=== PATIENT | female | born 1970 | race Caucasian/White ===

== ENCOUNTER 2019-05-20 23:27 | Inpatient (IN) ==
--- NOTE | 2019-05-20 23:57 | PROVIDER DOCUMENTATION ---
This chart was entered by Ansley Reyez Scribe, acting as scribe for Michelle Olsen MD. [facility] Abuse/Overdose - General Chief Complaint: Overdose Stated Complaint: OVERDOSE Time Seen by Provider: 05/20/19 23:30 Source: patient, EMS ([facility]) Allergies/Adverse Reactions: Allergies Allergy/AdvReac Type Severity Reaction Status Date / Time adhesive tape AdvReac Intermediate RASH Verified 05/20/19 14:33 ketorolac [From Toradol] AdvReac HEADACHE Verified 05/20/19 14:33 Home Medications: Home Medication List Medication Instructions Recorded Confirmed Last Taken Type Dexlansoprazole [Dexilant] 1 cap PO DAILY 06/07/16 05/21/19 11/11/16 08:00 History Gabapentin [Neurontin] 800 mg PO TID 06/07/16 05/21/19 11/11/16 20:30 History Levothyroxine [Synthroid] 1 tab PO DAILY 06/07/16 02/12/19 11/11/16 08:00 History Pioglitazone HCl/Metformin HCl 1 tab PO BID 06/07/16 02/12/19 11/11/16 20:30 History [Actoplus Met 15 mg-850 mg Tab] Buspirone [Buspar] 15 mg PO BID 11/06/16 02/12/19 11/11/16 08:00 History Ibuprofen 800 mg PO DIRECTED PRN 11/06/16 02/12/19 11/11/16 20:30 History Losartan Potassium 50 mg PO DAILY 11/06/16 02/12/19 11/11/16 08:00 History Citalopram Hydrobromide [Celexa] 40 mg PO DAILY 02/12/19 05/21/19 Unknown History Divalproex [Depakote] 500 mg PO DIRECTED 02/12/19 05/21/19 Unknown History Insulin Aspart [Novolog] 100 unit SQ DIRECTED 02/12/19 02/12/19 Unknown History Tramadol HCl [Ultram] 50 mg PO 4XDAY PRN PRN #20 tab 05/20/19 Unknown Rx - History of Present Illness-Drug/Alcohol Nature of Presenting Problem: Pt is a 48 yowf brought by EMS to ED after her mother called 911 saying she took the rest of her weeks worth of prescriptions medications from her pill box. EMS was given a list of pt's medications by pt's mother who lives with pt. Pt has a walking boot on left foot and an charito bandage wrapped around her left fingers and hand. Pt is person oriented and non combative. Pt is disheveled in appearance. This episode of drinking or use began:: just prior to arrival Severity: reports: moderate Situational problems related to:: reports: N/A Psychiatric Complaints: reports: agitated, anxiety, confused, depressed Associated Symptoms: denies: arm pain, diarrhea, shortness of breath, syncope Any injuries associated with this episode of intoxication?: No Review of Systems - Adult - REVIEW OF SYSTEMS - ADULT Constitutional: denies: chills, fever Eyes: reports: no symptoms reported Ears, Nose, Mouth & Throat: reports: no symptoms reported Cardiovascular: denies: chest pain, edema Respiratory: denies: cough, shortness of breath Gastrointestinal: denies: abdominal pain, nausea, vomiting Genitourinary: reports: no symptoms reported Musculoskeletal: reports: no symptoms reported Integumentary: reports: no symptoms reported Neurological: reports: no symptoms reported Psychiatric: reports: no symptoms reported Endocrine: reports: no symptoms reported Hematologic/Lymphatic: reports: no symptoms reported Allergic/Immunologic: reports: no symptoms reported All Other Systems: Reviewed and Negative Past History - Adult - PAST MEDICAL HISTORY-ADULT Review of Records: reports: Old Records Reviewed, Nursing Assessment Review, Medications Reviewed, Social history reviewed & non-contributory. Major Childhood Illnesses: reports: denies history Cardiovascular: reports: hyperlipidemia Respiratory: reports: denies history Gastrointestinal: reports: denies history Genitourinary: reports: denies history Musculoskeletal: reports: chronic pain Neurological: reports: denies history Psychiatric: reports: bipolar Endocrine/Immune: reports: Diabetes, thyroid disorder (Hypo) Other Conditions: reports: denies history - PRIOR SURGERIES/PROCEDURES Surgical/Procedure History: reports: reviewed, not pertinent - IMMUNIZATION STATUS Childhood Immunizations: See Nurse Assessment Flu Vaccine: See Nurse Assessment - FAMILY HISTORY Family History: reviewed, not pertinent - SOCIAL HISTORY Smoking: non-smoker Substance Use: none/never Living Situation: family (mother) Physical Exam-General - PHYSICAL EXAM-ADULT Initial Vital Signs Reviewed: Yes - CONSTITUTIONAL General Appearance: alert, mild distress, obese, anxious, slow to respond - EYES Eyes: PERRL/EOMI, pink conjunctivae - HEAD, EARS, NOSE, MOUTH & THROAT HENMT: normocephalic/atraumatic, moist mucous membranes, normal ENT inspection - NECK Neck: non-tender, full range of motion, supple, normal inspection - RESPIRATORY Respiratory: chest non-tender, lungs clear, normal breath sounds, no pleuratic chest pain, no respiratory distress - CARDIOVASCULAR Cardiovascular: normal peripheral pulses - GASTROINTESTINAL (ABDOMEN) Abdominal Exam: normal bowel sounds, non tender, soft - MUSCULOSKELETAL Back Exam: normal inspection, no CVA tenderness, no vertebral tenderness Extremity: normal range of motion, non-tender, normal inspection, no pedal edema , other (walking boot on left foot) - SKIN Integumentary: normal turgor, warm/dry, pallor - PSYCHIATRIC Psych/Mental Status: anxious, disheveled, depressed affect, other (person oriented) Progress - PLAN OF CARE/RESULTS Progress/Plan/Lab Results: Vital Signs - 8 hr 05/20/19 23:44 05/21/19 00:11 05/21/19 00:21 Temperature 97.9 F Pulse Rate 96 H Respiratory Rate 20 Blood Pressure 114/66 108/73 O2 Sat by Pulse Oximetry 94 L 96 94 L 05/21/19 00:41 Temperature Pulse Rate 94 H Respiratory Rate 17 Blood Pressure 114/57 O2 Sat by Pulse Oximetry Laboratory Results - last 24 hr 05/20/19 05/20/19 05/20/19 23:48 23:48 23:48 WBC 6.04 RBC 3.93 L Hgb 11.1 L Hct 36.5 L MCV 92.9 MCH 28.2 MCHC 30.4 L RDW Std Deviation 14.4 Plt Count 116 L MPV 9.3 Immature Gran % (Auto) 0.5 Neut % (Auto) 46.9 Lymph % (Auto) 38.1 [place] % (Auto) 10.3 H Eos % (Auto) 4.0 Baso % (Auto) 0.2 Immature Gran # (Auto) 0.03 Neut # (Auto) 2.84 Lymph # (Auto) 2.30 [place] # (Auto) 0.62 H Eos # (Auto) 0.24 Baso # (Auto) 0.01 Sodium 139 Potassium 5.3 H Chloride 101 Carbon Dioxide 25 Anion Gap 13 BUN 33 H Creatinine 2.5 H Estimated GFR/1.73 m2 20 BUN/Creatinine Ratio 13 Glucose 182 H Calculated Osmolality 289 Calcium 9.0 Total Bilirubin 0.18 L AST 8 L ALT 5 L Alkaline Phosphatase 84 Total Protein 7.4 Albumin 3.9 Globulin 3.5 Albumin/Globulin Ratio 1.1 Urine Source Urine Color Urine Turbidity Urine pH Ur Specific [place] Urine Protein Ur Glucose (Stick) Ur Ketones (Stick) Urine Blood Urine Nitrite Urine Bilirubin Urobilinogen Dipstick Urine Leukocytes Urine WBC (Auto) Urine RBC (Auto) U Epithel Cells (Auto) Urine Bacteria (Auto) Salicylates < 3.00 L Urine Opiates Screen Ur Oxycodone Screen Ur Methadone, Qual Acetaminophen < 1.2 L Ur Barbiturates Screen Valproic Acid 131.20 H* Ur Phencyclidine Scrn Ur Amphetamines Screen U Benzodiazepines Scrn Urine Cocaine Screen U Cannabinoids Screen Plasma/Serum Ethyl Alc Acetone Level NEGATIVE 05/21/19 05/21/19 00:19 00:19 WBC RBC Hgb Hct MCV MCH MCHC RDW Std Deviation Plt Count MPV Immature Gran % (Auto) Neut % (Auto) Lymph % (Auto) [place] % (Auto) Eos % (Auto) Baso % (Auto) Immature Gran # (Auto) Neut # (Auto) Lymph # (Auto) [place] # (Auto) Eos # (Auto) Baso # (Auto) Sodium Potassium Chloride Carbon Dioxide Anion Gap BUN Creatinine Estimated GFR/1.73 m2 BUN/Creatinine Ratio Glucose Calculated Osmolality Calcium Total Bilirubin AST ALT Alkaline Phosphatase Total Protein Albumin Globulin Albumin/Globulin Ratio Urine Source CATH Urine Color YELLOW Urine Turbidity CLEAR Urine pH 5.0 Ur Specific [place] 1.011 Urine Protein NEGATIVE Ur Glucose (Stick) NEGATIVE Ur Ketones (Stick) NEGATIVE Urine Blood NEGATIVE Urine Nitrite NEGATIVE Urine Bilirubin NEGATIVE Urobilinogen Dipstick NORMAL Urine Leukocytes NEGATIVE Urine WBC (Auto) <10 Urine RBC (Auto) <10 U Epithel Cells (Auto) <10 Urine Bacteria (Auto) NEGATIVE Salicylates Urine Opiates Screen NONE DETECTED Ur Oxycodone Screen NONE DETECTED Ur Methadone, Qual NONE DETECTED Acetaminophen Ur Barbiturates Screen NONE DETECTED Valproic Acid Ur Phencyclidine Scrn NONE DETECTED Ur Amphetamines Screen NONE DETECTED U Benzodiazepines Scrn NONE DETECTED Urine Cocaine Screen NONE DETECTED U Cannabinoids Screen NONE DETECTED Plasma/Serum Ethyl Alc Acetone Level Orders Category Date Time Status Cardiac Monitoring DIRECTED Care 05/20/19 23:47 Active [facility] Cath Insertion ORDERED Care 05/21/19 00:[address] HEAD W/O CONTRAST [CT] Stat Exams 05/20/19 23:37 Taken ACETAMINOPHEN [TDM] Stat Lab 05/20/19 23:48 Completed ACETONE SERUM [CHEM] Stat Lab 05/20/19 23:48 Completed ALCOHOL BLOOD Stat Lab 05/20/19 23:48 Completed CBC WITH ELECTRONIC DIFF [HEME] Stat Lab 05/20/19 23:48 Completed COMPREHENSIVE METABOLIC PANEL [CHEM] Stat Lab 05/20/19 23:48 Completed Depakote [VALPROIC ACID] [TDM] Stat Lab 05/20/19 23:48 Completed SALICYLATES [TDM] Stat Lab 05/20/19 23:48 Completed TSH Stat Lab 05/20/19 23:48 Received URINALYSIS W/POSS RFLX CULT [URINALYSIS] Stat Lab 05/21/19 00:19 Completed URINE DRUG SCREEN Stat Lab 05/21/19 00:19 Completed 0.9% Sodium Chloride Inj [Ns] 1,000 ml Med 05/21/19 01:15 Ordered IV 125 mls/hr 0.9% Sodium Chloride Inj [Ns] 1,000 ml Med 05/21/19 00:35 Active IV 999 mls/hr EKG [EKG] Stat Ther 05/20/19 23:36 Ordered EKG [EKG] Stat Ther 05/21/19 00:37 Ordered Transfer/Admit Order [TRANSFER] Routine Transfer 05/21/19 01:07 Ordered Result Diagrams: 05/20/19 23:48 05/20/19 23:48 - REASSESSMENT Reassessment #1 Time Reassessed: 23:55 Status: unchanged (poison control contacted. states to do supportive measures and get serial EKGs.) - EKG 1 Time of EKG reading by physician:: 23:52 EKG Read and Signed by:: Michelle lOsen EKG Interpretation (*Must complete 3 of following elements*): Normal Rate: 99 Rhythm: NSR [place]: normal QRS: normal PA Interval: normal ST Wave: normal Prior EKG Comparison: unchanged from prior 2 Time of EKG reading by physician:: 01:01 EKG Read and Signed by:: Michelle Olsen EKG Interpretation (*Must complete 3 of following elements*): Normal Rate: 93 Rhythm: NSR [place]: normal QRS: normal PA Interval: normal ST Wave: normal Prior EKG Comparison: unchanged from prior - CT/MRI 1 CT Study: Head Impression: See EMR Report Departure - Departure Date of Disposition Decision: 05/21/19 Time of Disposition Decision: 00:36 DIAGNOSIS: SHERON (acute kidney injury), Valproic acid toxicity Disposition: ADMITTED INPATIENT 09 Certified Medical Emergency: Emergent Condition: Stable - Critical Care Note This patient required my direct & personal management of CC.: No Attestation - Physician/ AMARI Attestation Patient care was provided by Advanced Practice Provider:: No The physician spent face to face time with patient:: Yes Advanced Practice Provider documentation review:: Supervising physician onsite and consulted in the evaluation and care of this patient. The physician did have a face to face encounter with the patient. This chart was documented by the indicated scribe, (Ansley Reyez, Scribe) and accurately reflects the services I performed and decisions made by me, Michelle Olsen MD, as attested by the provider's signature.
[2019-05-21 00:02] LABS: BASO# 0.01 X1000 (0.0-0.2); BASO% 0.2 % (0.0-0.8); EOS# 0.24 X1000 (0.0-0.7); HEMATOCRIT 36.5 % (37.0-47.0); HEMOGLOBIN 11.1 g/dL (12.0-16.0); IMM GRAN# 0.03 X1000 (0.0-0.04); IMM GRAN% 0.5 % (0.0-0.5); LYMPH% 38.1 % (20.5-51.1); MCH 28.2 PG (27-31); MCHC 30.4 g/dL (33-37); MCV 92.9 FL (81-99); MONO# 0.62 X1000 (0.11-0.59); MONO% 10.3 % (1.7-9.3); MPV 9.3 FL (7.4-10.4); NEUT# 2.84 X1000 (1.4-6.5); NEUT% 46.9 % (42.2-75.2); PLT 116 X1000 (130-400); RBC 3.93 XMIL (4.2-5.4); RDW 14.4 % (11.5-14.5); WBC 6.04 X1000 (4.8-10.8)
[2019-05-21 00:24] LABS: ACETAMINOPHEN < 1.2 ug/mL (10-30); AGAP 13; ALB/GLOB RATIO 1.1; ALBUMIN 3.9 g/dL (3.5-5.0); ALKALINE PHOSPHATASE 84 U/L (32-104); BUN 33 mg/dL (8-22); CHLORIDE 101 mmol/L (98-107); COSMO 289; CREATININE 2.5 mg/dL (0.5-0.9); ESTIMATED GFR 20; GLUCOSE 182 mg/dL (70-104); GOT 8 U/L (10-30); GPT 5 U/L (10-36); POTASSIUM 5.3 mmol/L (3.5-5.1); SALICYLATES < 3.00 mg/dL (3-10); SODIUM 139 mmol/L (136-145); TCO2 25 mmol/L (25-35); TOTAL BILIRUBIN 0.18 mg/dL (0.20-1.00); TOTAL PROTEIN 7.4 g/dL (6.3-8.3)
[2019-05-21 00:31] LABS: URINE SOURCE CATH
[2019-05-21 00:32] LABS: ACETONE SERUM NEGATIVE (NEGATIVE)
[2019-05-21] MEDS ORDERED: NS 1,000 ML IV ONE ×2 (00:35→05:43)
[2019-05-21 00:36] LABS: BILIRUBIN URINE NEGATIVE (NEGATIVE); BLOOD URINE NEGATIVE (NEGATIVE); COLOR YELLOW; GLUCOSE URINE NEGATIVE (NEGATIVE); KETONE URINE NEGATIVE (NEGATIVE); LEUKOCYTES URINE NEGATIVE (NEGATIVE); NITRITE URINE NEGATIVE (NEGATIVE); PROTEIN URINE NEGATIVE (NEGATIVE); SP GRAVITY URINE 1.011; TURBIDITY URINE CLEAR (CLEAR); UROBILINOGEN URINE NORMAL (NORMAL)
[2019-05-21 00:37] LABS: UR EPITHELIAL CELLS <10 /HPF (<10); URINE BACTERIA NEGATIVE /HPF; URINE RBC <10 /HPF (<10); URINE WBC <10 /HPF (<10)
[2019-05-21 00:48] LABS: UR AMPHETAMINES QUAL NONE DETECTED (NONE DETECT); UR BARBITUATES QUAL NONE DETECTED (NONE DETECT); UR BENZODIAZEPIN QUAL NONE DETECTED (NONE DETECT); UR CANNABINOIDS QUAL NONE DETECTED (NONE DETECT); UR COCAINE QUAL NONE DETECTED (NONE DETECT); UR METHADONE QUAL NONE DETECTED (NONE DETECT); UR OPIATES QUAL NONE DETECTED (NONE DETECT); UR OXYCODONE QUAL NONE DETECTED (NONE DETECT); UR PCP QUAL NONE DETECTED (NONE DETECT)
[2019-05-21] MEDS ORDERED: ACTIDOSE 50 GM LIQUID PO ONE (01:12)
[2019-05-21] MEDS: NS 1,000 ML IV SCH ×3 (02:03→17:49)
--- NOTE | 2019-05-21 03:04 | EKG Report ---
Test Performed on : 05/21/2019 01:00:57 AM Test Reason : CP Blood Pressure : / mmHG Vent. Rate : 093 BPM Atrial Rate : 093 BPM P-R Int : 134 ms QRS Dur : 074 ms QT Int : 362 ms P-R-T Axes : 047 038 034 degrees QTc Int : 450 ms Normal sinus rhythm. Low voltage QRS Borderline ECG When compared with ECG of 20-MAY-2019 23:50, (Unconfirmed) Non-specific change in ST segment in Inferior leads Unconfirmed Result
--- NOTE | 2019-05-21 03:04 | EKG Report ---
Test Performed on : 05/20/2019 11:50:01 PM Test Reason : CP Blood Pressure : / mmHG Vent. Rate : 099 BPM Atrial Rate : 099 BPM P-R Int : 134 ms QRS Dur : 070 ms QT Int : 366 ms P-R-T Axes : 046 023 029 degrees QTc Int : 469 ms Normal sinus rhythm. Normal ECG When compared with ECG of 06-MAR-2019 08:41, Nonspecific T wave abnormality no longer evident in Lateral leads QT has lengthened Unconfirmed Result
--- NOTE | 2019-05-21 03:41 | HISTORY AND PHYSICAL ---
ADDENDUM: Ms. Orozco was admitted to our facility after ingestion of 4 days worth of her home medications. She had been previously seen in our ER the day before after having sustained a fall, presumably from being mildly drowsy, which we believe in hind site could be related to inappropriate use of her medications. The patient was slightly drowsy and lethargic when I spoke with her. She was also in a mild state of stupor, but would follow basic commands. Compared to what I read in her note, she is more alert and somewhat oriented. The patient was found with several of her pills scattered on her bed and she had actually rolled out of bed and was confused, per her family. The patient denies any audiovisual hallucinations or suicidal ideations, although she did attempt suicide, by her own admission, a year ago. When questioned as to why she did what she did, she cannot give any valid reason. LABORATORY WORK: The patient's lab work was notable for elevated creatinine of 2.5, which could be secondary to ingestion of Cozaar. Her baseline creatinine is 1.1. Other labs of note: Hemoglobin and hematocrit 11 and 36, with a platelet count of 116,000, this is down from a platelet count of 197,000. Her valproic acid level is toxic range. Her exam was notable for being drowsy, mildly stuporous and positive myoclonic jerks and asterixis. PLAN: The patient will require supportive care with IV fluids. Recommend repeating Depakote levels and creatinine. We will give repeated boluses if her blood pressure starts to trend downwards. This patient is at high risk of hurting herself if she goes home regardless of what she says, has suicidal tendencies. The other thing of note, she is wearing an orthopedic boot possibly secondary to third degree sprain from her fall 2 days ago. cc: Teja Enriquez MD
[2019-05-21] MEDS ORDERED: ZOFRAN IV PRN (05:43)
[2019-05-21 06:13] LABS: EOS# 0.25 X1000 (0.0-0.7); EOS% 4.4 % (0.0-10.0); HEMATOCRIT 33.2 % (37.0-47.0); HEMOGLOBIN 9.9 g/dL (12.0-16.0); IMM GRAN# 0.04 X1000 (0.0-0.04); IMM GRAN% 0.7 % (0.0-0.5); LYMPH# 2.31 X1000 (1.2-3.4); LYMPH% 40.4 % (20.5-51.1); MCHC 29.8 g/dL (33-37); MCV 94.1 FL (81-99); MONO% 8.7 % (1.7-9.3); MPV 9.3 FL (7.4-10.4); NEUT# 2.62 X1000 (1.4-6.5); NEUT% 45.8 % (42.2-75.2); PLT 98 X1000 (130-400); RBC 3.53 XMIL (4.2-5.4); RDW 14.3 % (11.5-14.5); WBC 5.72 X1000 (4.8-10.8)
[2019-05-21 06:41] LABS: HEMOGLOBIN A1C 8.2 % (4.8-6.0)
[2019-05-21 06:48] LABS: ACETAMINOPHEN < 1.2 ug/mL (10-30); AGAP 9; ALB/GLOB RATIO 1.1; ALBUMIN 3.2 g/dL (3.5-5.0); ALKALINE PHOSPHATASE 69 U/L (32-104); BUN 26 mg/dL (8-22); CALCIUM 8.8 mg/dL (8.8-10.2); CHLORIDE 107 mmol/L (98-107); COSMO 289; CREATININE 2.1 mg/dL (0.5-0.9); ESTIMATED GFR 25; GLUCOSE 159 mg/dL (70-104); GOT 7 U/L (10-30); GPT 5 U/L (10-36); MAGNESIUM 2.2 mg/dL (1.5-2.7); POTASSIUM 5.7 mmol/L (3.5-5.1); SALICYLATES < 3.00 mg/dL (3-10); SODIUM 141 mmol/L (136-145); TCO2 25 mmol/L (25-35); TOTAL BILIRUBIN < 0.15 mg/dL (0.20-1.00); TOTAL PROTEIN 6.2 g/dL (6.3-8.3)
--- NOTE | 2019-05-21 07:04 | Diag Imaging Result Doc PS360 ---
EXAM: CT HEAD W/O CONTRAST 05/20/2019 HISTORY: head injury minor TECHNIQUE: This exam was performed using automated exposure control, adjustment of mA or kV according to patient size, and/or use of iterative reconstruction technique. COMMENT: There is no evidence of mass effect, bleed, or abnormal extra-axial fluid collection. There is hyperostosis of the calvarium. There is some mucosal thickening in the right maxillary sinus consistent with chronic sinusitis. There is soft tissue swelling and apparent hematoma formation in the scalp posteriorly on the right. IMPRESSION: No evidence of acute intracranial disease. Electronically signed by Scotty Gonsales 05/21/2019 7:02 AM
--- NOTE | 2019-05-21 07:06 | EKG Report ---
Test Performed on : 05/21/2019 06:28:39 AM Test Reason : follow up Blood Pressure : / mmHG Vent. Rate : 093 BPM Atrial Rate : 093 BPM P-R Int : 132 ms QRS Dur : 068 ms QT Int : 348 ms P-R-T Axes : 049 039 055 degrees QTc Int : 432 ms Normal sinus rhythm. Low voltage QRS Borderline ECG When compared with ECG of 21-MAY-2019 01:00, (Unconfirmed) No significant change was found Confirmed by Jasson BENITEZ, Adam Guerra ([id number]) on 05/23/2019 10:25:27 PM
--- NOTE | 2019-05-21 08:01 | HISTORY AND PHYSICAL ---
PRIMARY CARE PROVIDER: Unknown. CHIEF COMPLAINT: Overdose. HISTORY OF PRESENT ILLNESS: Ms. Orozco is a 48-year-old female with a past medical history of bipolar, anxiety, depression, diabetes, hypercholesterolemia, insomnia, chronic pain, migraines, hypothyroidism, GERD, who was brought in by EMS for overdose. Per EMS records, the patient had fell out of bed and was altered, and 911 was called. They found the patient on the floor and altered with some more pills in her bed. She is currently sleepy, fidgety in bed, somewhat altered. However, when you wake her up, she does know her name. She knows her date of . She knows the correct year. She knows what hospital she is at. She knows the president. She initially denied taking the medications on purpose or too many of them, and then I began to ask her about her left hand that was wrapped in a bandage, as well as her left foot that was in a boot, and she stated she fell out of a chair. I did ask her what happened to her left hand and her left lower extremity that she had on a boot. She told me she fell out of a chair. However, the ED report yesterday states that she had a fall at the bank, it looks like on the she had a fall at the bank, was seen at [facility]. Her finger has a splint on it on the left, as well as wrapped in Mauricio bandage. She has a boot on her left lower extremity, and then yesterday she fell backwards hitting her head and had a large hematoma on the right occiput of her head. She did report that she tried to commit suicide over a year ago. When I ask her again if she took too many of her medications on purpose, she said yes, and when I ask her why she could not tell me why. She said it just sounds in that she does from time to time. They are going to give her activated charcoal in the ED. Her valproic acid level was 131, salicylate less than 3, acetaminophen was 1.2. She does have an acute kidney injury at 2.5 and a mildly elevated potassium. She has already been given 1 liter of fluid. We will monitor her blood glucoses hourly. We will recheck her valproic acid level, salicylates, and acetaminophen levels again in the a.m., as well as recheck her kidney function and potassium level and continue with frequent neurological checks and a consult for [facility] for [facility]. PAST MEDICAL HISTORY: Bipolar disorder, GERD, anxiety, depression, diabetes, hyperlipidemia, insomnia, chronic pain, hypothyroidism, suicide attempt 1 year ago. PAST SURGICAL HISTORY: Bladder sling, hysterectomy, tonsillectomy. ALLERGIES: To adhesive tape and Toradol. HOME MEDICATIONS: Have not been all completed and verified, but BuSpar, Celexa, Dexilant, Depakote, Neurontin, ibuprofen, NovoLog, Synthroid, losartan, ACTOplus, and Ultram. FAMILY HISTORY: Mother with diabetes and hypertension. Sister with diabetes. SOCIAL HISTORY: Patient lives at home with her mother. PHYSICAL EXAMINATION: VITAL SIGNS: Temperature is 97.9 degrees, heart rate 94, respirations 18, blood pressure 114/57, and O2 is 96% on 2 L nasal cannula. GENERAL: Ms. Orozco is a sleepy, but easily arousable 48-year-old female. Once awakened is very fidgety, lying on the hospital bed in no acute distress. HEENT: Atraumatic, normocephalic. PERRL. NECK: Supple. Trachea midline. CARDIOVASCULAR: S1, S2 appreciated. No murmurs, gallops, rubs noted. RESPIRATORY: Lung sounds clear bilaterally, decreased in the bases bilaterally. GASTROINTESTINAL: Obese, soft, nontender, nondistended. Positive bowel sounds in 4 quadrants. EXTREMITIES: She does have a split to one of her left fingers wrapped in Mauricio bandage. She is also in a walking boot on her left lower extremity. NEUROLOGIC: The patient is sleepy. She does awaken easily. Initially, she is somewhat altered. It takes her a minute to wake up. However, she does know her name, her date of , the current year, the place where she is at, the current president. She does answer questions. DIAGNOSTIC DATA: Head CT shows a scalp hematoma that was seen on CT yesterday. LABORATORY DATA: White count 6, hemoglobin and hematocrit of 11 and 36, platelet count of 116,000. Sodium 139, potassium 5.3, BUN 33, creatinine 2.5, blood glucose is 182, T bilirubin 0.1, AST 8, ALT 5, alkaline phosphatase 84. Urinalysis is negative. Salicylate level less than 3, acetaminophen less than 1.2, valproic acid is 131. Acetone level is negative. ASSESSMENT AND PLAN: 1. Intentional overdose on home medications. The patient has tried to overdose in the past, I believe back in January 2019. She was not admitted at that time. She was discharged home. We will monitor her closely in the intensive care unit. She is going to be given activated charcoal. We will keep a close eye on her blood sugars, recheck her valproic acid level, monitor her mental status, and continue with intravenous fluids and have Fred Fried talk to her later today. 2. Bipolar with anxiety and depression. We will hold all home medications for now. Again, we will have Corky talk to her later today. 3. Diabetes mellitus. We will check fingerstick blood sugars every 1 hour as the patient is on an oral medication. 4. Chronic pain. We will hold any narcotics. The patient is sleepy, somewhat altered. However, she does wake up. 5. Hypothyroidism. We will check a TSH. 6. Two recent falls, one at the bank on the and one out of a chair yesterday. She does have a scalp hematoma that is seen on [address] head CTs back to back with no intracranial hemorrhage. Could be due to over medication use. She does have Mauricio bandage and splint on her left hand, as well as boot to her left lower extremity. 7. Further recommendation to follow physician evaluation, laboratory, and diagnostic data. Dictated by NOHEMI Angulo for Teja Enriquez MD cc: Teja Enriquez MD
[2019-05-21] MEDS ORDERED: LOKELMA POWDER PACKET PO ONE (08:51)
[2019-05-21] MEDS: HUMALOG SUBQ SCH ×3 (12:14→22:00)
[2019-05-21 15:27] LABS: CALCIUM 8.4 mg/dL (8.8-10.2); CREATININE 1.3 mg/dL (0.5-0.9); POTASSIUM 5.9 mmol/L (3.5-5.1)
[2019-05-21] MEDS: TYLENOL PO PRN (15:59)
[2019-05-21] MEDS ORDERED: HUMALOG SUBQ SCH (16:00)
[2019-05-21] MEDS ORDERED: LOKELMA POWDER PACKET PO SCH (17:00)
--- NOTE | 2019-05-21 19:03 | PROGRESS NOTE ---
DATE: 05/21/2019 BRIEF PROGRESS NOTE: Patient admitted with overdose of uncertain intentionality. She was reportedly found down at home with pills scattered around her, reportedly took 4 days of her home medications, although uncertain how we know that exactly. Depakote level was high on admission, but down back into a more reasonable range on recheck this morning. Tylenol negative x2. Urinalysis unremarkable. Patient pretty confused on admission, but coming around now. Denying any suicidal ideation currently, but also states she does not recall the events leading up to her hospitalization, does not know why she would have to took more of her medication than prescribed. Patient with acute kidney injury on admission, appears to be improving. Creatinine 2.5 initially, down to 2.1 today, baseline approximately 1. Also some elevated potassium, so giving her some Lokelma and insulin, and will recheck. The patient does have odd affect and will likely need to be at least screened by Corky prior to discharge, but if her kidney function continues to improve, then may be medically stable for discharge tomorrow.
[2019-05-21] MEDS: DUONEB (A & A) INH SCH (20:45)
[2019-05-21 21:38] LABS: CALCIUM 8.6 mg/dL (8.8-10.2); CREATININE 1.1 mg/dL (0.5-0.9); POTASSIUM 5.6 mmol/L (3.5-5.1)
[2019-05-22] MEDS: TYLENOL PO PRN ×2 (01:00→06:44)
[2019-05-22] MEDS: NS 1,000 ML IV SCH (01:41)
[2019-05-22] MEDS: DUONEB (A & A) INH SCH ×2 (03:36)
[2019-05-22 05:35] LABS: BASO# 0.02 X1000 (0.0-0.2); BASO% 0.4 % (0.0-0.8); EOS# 0.08 X1000 (0.0-0.7); EOS% 1.5 % (0.0-10.0); HEMOGLOBIN 9.5 g/dL (12.0-16.0); IMM GRAN# 0.07 X1000 (0.0-0.04); IMM GRAN% 1.3 % (0.0-0.5); LYMPH# 2.17 X1000 (1.2-3.4); LYMPH% 40.6 % (20.5-51.1); MCH 28.1 PG (27-31); MCHC 29.7 g/dL (33-37); MCV 94.7 FL (81-99); MONO# 0.48 X1000 (0.11-0.59); MPV 10.1 FL (7.4-10.4); NEUT# 2.52 X1000 (1.4-6.5); NEUT% 47.2 % (42.2-75.2); PLT 77 X1000 (130-400); RBC 3.38 XMIL (4.2-5.4); RDW 13.5 % (11.5-14.5); WBC 5.34 X1000 (4.8-10.8)
[2019-05-22 05:48] LABS: CALCIUM 8.6 mg/dL (8.8-10.2); POTASSIUM 5.2 mmol/L (3.5-5.1)
[2019-05-22] MEDS: HUMALOG SUBQ SCH ×2 (06:43→12:37)
[2019-05-22] MEDS ORDERED: DEPAKOTE PO SCH ×2 (09:00→21:00)
[2019-05-22] MEDS ORDERED: DULCOLAX PR SCH (09:00)
[2019-05-22] MEDS ORDERED: LASIX PO SCH (09:00)
[2019-05-22] MEDS ORDERED: LANTUS INSULIN SUBQ SCH (09:00)
[2019-05-22] MEDS ORDERED: DEXILANT PO SCH (09:00)
[2019-05-22] MEDS ORDERED: SYNTHROID PO SCH (09:00)
[2019-05-22] MEDS ORDERED: CELEXA PO SCH (09:00)
[2019-05-22] MEDS: MIRALAX PO SCH ×2 (09:08→09:09)
[2019-05-22 11:38] VITALS: BP 122/62
--- NOTE | 2019-05-22 13:28 | PROGRESS NOTE ---
DATE: 05/22/2019 INTERVAL HISTORY: No acute events overnight. SUBJECTIVE: Ms. Orozco denies any complaints. She states she is feeling better. She denies any active suicidal ideation. She states it is possible she took too many of her [place] to hurt herself. However, she did not remember that episode. She, however, states that she is supposed to take [place] 7.5 every 8 hours and instead she took 2 tablets of [place] 7.5 every 8 hours in about 12 hours prior to current presentation which could have made her feel very drowsy and that is why she fell down. However, she states that she understands the risk associated with it and does not intend to do it in future. She wanted to go home. I discussed with her about psychiatric evaluation by Fred Fried, Physical Therapy evaluation and keeping her inside the hospital until both of them happen, hopefully today. VITALS: Temperature 98.1 degrees, pulse 73, respiratory 18, blood pressure 120/60, saturating 96% on nasal cannula. PHYSICAL EXAMINATION: General: Not in any acute distress. Oral cavity is moist. Respiratory: Air entry bilaterally equal, no wheeze, rhonchi, crackles. Cardiovascular: S1, S2 normal. No murmur or gallop. Abdomen: Soft, nontender, hypoactive bowel sounds. Neuromuscular: No lower extremity edema. She is alert and oriented, oriented x3. She has bandage of left hand and hip, and boot of her left foot that her outpatient orthopedic doctor had prescribed. LABORATORIES: Suggestive of normocytic anemia, mild thrombocytopenia. She does have elevated potassium. Acute kidney injury has essentially resolved. MICROBIOLOGY: No data. IMAGING: No new imaging. ASSESSMENT AND PLAN: 1. Overdose with her home medications. Her urine opiate screen was negative, however, patient states that she took [place] 7.5 two tablets about 8 hours apart. She also had a high valproic acid level, but she states that she only takes valproate as prescribed. She was given activated charcoal in the emergency room. She currently denies any active suicidal ideation. I educated her about taking medications only as prescribed and following up with her outpatient pain doctor. I will consult Fred Fried to see if she would need any inpatient psychiatric evaluation. 2. History of bipolar mood disorder and previous history of suicide attempt. She currently denies any active suicidal ideation. Resume her home quetiapine, Depakote. 3. Insulin-dependent diabetes mellitus. Her hemoglobin A1c is slightly elevated as she has been having hyperglycemia. I will continue her on sliding scale insulin and we will start her on long-acting glargine as well. 4. Other. Continue home levothyroxine for hypothyroidism, proton pump inhibitors for chronic GERD, citalopram for anxiety and depression, and pravastatin for hyperlipidemia. DISPOSITION: Awaiting Fred Fried consultation, Physical Therapy evaluation. Based on that I would anticipate discharge home today or within the next 24 hours. Plan of care discussed with her. Questions have been answered. cc: Jovanny Miguel MD
[2019-05-22] MEDS ORDERED: SEROQUEL PO SCH (21:00)
[2019-05-22] MEDS ORDERED: PRAVACHOL PO SCH (21:00)
--- NOTE | 2019-05-22 21:32 | DISCHARGE SUMMARY ---
ADMISSION DATE: 05/21/2019 DISCHARGE DATE: 05/22/2019 DISCHARGE DISPOSITION: Home with family. Her mother is at bedside. DISCHARGE CONDITION: Hemodynamically stable. She denies any chest pain, shortness of breath, nausea, vomiting, abdominal pain or diarrhea. She has been given prescription for constipation. She denies any suicidal ideation. DISCHARGE DIAGNOSES: 1. Overdose with home medications, with valproate with or without [place]. 2. Acute encephalopathy on presentation in the setting of medication overdose. 3. Suspected suicide attempt, though it was not entirely clear whether the overdose was intentional or unintentional. 4. Hyperglycemia. 5. Acute kidney injury. 6. Hyperkalemia. OTHER DIAGNOSES: 1. Obesity. 2. Bipolar mood disorder. 3. Chronic gastroesophageal reflux disease. 4. Chronic pain. 5. Hypothyroidism. 6. Suicide attempt in 2018. 7. Insulin-dependent diabetes mellitus. DISCHARGE MEDICATIONS: 1. Pravastatin 80 mg at nighttime. 2. Quetiapine 400 mg at nighttime. 3. Pioglitazone/metformin 15/850 mg tablet 1 tablet t.i.d. 4. Basaglar subcutaneous daily. 5. Buspirone 10 mg b.i.d. 6. Citalopram 40 mg daily. 7. Losartan 100 mg daily. 8. Depakote 1000 mg in the morning time, 500 mg at nighttime. 9. Dexilant 60 mg daily. 10. Sitagliptin 100 mg daily. 11. Furosemide 40 mg daily. 12. Insulin aspart 5 units with meals. 13. Levothyroxine 137 mcg daily. 14. Tramadol 50 mg every 6 hours as needed. 15. MiraLAX 17 g b.i.d.; 10 powders have been prescribed. Gabapentin had been stopped. PHYSICAL EXAMINATION: Vital signs: At the time of discharge temperature 98.5 degrees, pulse 70, respiratory rate 20, blood pressure 120/62, saturating 93% on room air. General: Not in acute distress. Oral cavity is moist. Air entry bilaterally equal. No wheeze or rhonchi. Mild infrascapular crackles. S1, S2 normal. No murmur or gallop. Abdomen is soft, nontender. She denies any suicidal or homicidal ideation. Her mood and affect are normal and appropriate. Her thought content is normal. No tangentiality. Her speech is normal. She is alert and oriented x3. LABORATORY DATA: Her potassium is 5.2, sodium 139, BUN 13, creatinine of 1. She does have hemoglobin of 9.5 and platelets of 77,000, which is likely related to hemodilution, as since admission she is positive 5 L. HOSPITAL COURSE SUMMARY: Ms. Orozco is a 48-year-old lady who presented on 05/20/2019 with chief complaint of overdose. Apparently the patient fell out of bed and was altered. When the EMS arrived the patient was found to be on the floor and she was confused. She had several pills in her bed. She was fidgety, so she was brought to the hospital. In the hospital, she could tell her name and date of . She initially denied taking the medication on purpose; however, it was not entirely clear. Apparently the patient had fallen down 48 hours prior to current presentation and had seen her orthopedic doctor. She was diagnosed with dislocation of her left 2nd finger, as well as also diagnosed to have a fracture of one of the left foot toes, which were being treated nonoperatively by the orthopedic doctor. She was in the emergency room, was hemodynamically stable; however, was found to have acute kidney injury with BUN of 33 and creatinine of 2.5. She was started on intravenous fluid resuscitation and was admitted for further management. With supportive management and intravenous fluid, her condition improved. Her kidney function improved. The patient was awake, alert and oriented, and she wanted to be discharged. At the time of discharge she did not have any suicidal or homicidal ideation. Fred Fried was consulted, who recommended the patient did not meet inpatient psychiatric admission criteria. The patient was also treated for her hyperkalemia and her acute kidney injury had resolved, so there were no medical indications keeping the patient inside the hospital. At the time of discharge, the patient's mother is at bedside. I went again at bedside and talked with the patient's mother and the patient about her clinical condition, the reason she was admitted inside the hospital, need for establishing care with a regular physician as well as psychiatric evaluation. I explained to them about stopping gabapentin, considering its potential adverse effect. The patient's mother told me that she took away the patient's pain medication opioids as well. The patient was counseled about calling 911 if she had any homicidal or suicidal ideation, and she agreed. More than 30 minutes of time was spent discharging this patient. cc: Jovanny Miguel MD
== END 2019-05-22 14:20 | disposition home or self-care (01) | DRG 917 ==
LOC: ED 23:27 → SUATTDRO 05-21 02:56 → INTOOBSV 05-21 02:56 → OBSVTOIN 05-21 02:56 → EDIPHOLD 05-21 02:56 → ICU 05-21 04:10 → 2N 05-21 20:01
PROVIDERS: ATTEND Internal Medicine